=== PATIENT | male | born 1985 ===

== ENCOUNTER 2018-08-11 20:32 | Emergency (ER) | payer OTHER ==
--- NOTE | 2018-08-11 21:07 | ED PDOC ---
HPI: General Adult Time Seen by Provider: 08/11/18 20:44 Chief Complaint (Nursing): Abnormal Skin Integrity History Per: Patient Additional Complaint(s): Pt. states today he developed a progressively worsening painful swelling to the bottom of his chin. He took Tylenol (last dose at 1500) for pain without any relief. States pain is worse when he moves his neck. Denies fever, chills, sore throat, rash, ear pain, cough, congestion, sick contacts, recent travel, abd pa in. Past Medical History Reviewed: Historical Data, Nursing Documentation, Vital Signs Vital Signs: Last Vital Signs Temp 98.6 F 08/11/18 20:36 Pulse 82 08/11/18 20:36 Resp 16 08/11/18 20:36 BP 156/74 H 08/11/18 20:36 Pulse Ox 99 08/11/18 20:36 - Medical History PMH: No Chronic Diseases - Surgical History Surgical History: No Surg Hx - Family History Family History: States: No Known Family Hx - Allergies Allergies/Adverse Reactions: Allergies Allergy/AdvReac Type Severity Reaction Status Date / Time No Known Allergies Allergy Verified 08/11/18 20:36 Review of Systems ROS Statement: Except As Marked, All Systems Reviewed And Found Negative Physical Exam - Physical Exam Appears: Positive for: Well, Non-toxic, No Acute Distress Skin: Positive for: Normal Color, Warm. Negative for: Rash Eye Exam: Positive for: Normal appearance, EOMI, PERRL ENT: Positive for: TM Is/Are (non-erythematous, non-bulging b/l), Other (L sided submandibular swelling and tenderness; no swelling underneath tongue; no dental abscess; no trismus; able to swallow saliva without pain). Negative for: Pharyngeal Erythema, Tonsillar Exudate, Tonsillar Swelling Neck: Positive for: Normal, Painless ROM, Supple. Negative for: Pain On Movement Of Neck Cardiovascular/Chest: Positive for: Regular Rate, Rhythm Respiratory: Positive for: Normal Breath Sounds. Negative for: Stridor Gastrointestinal/Abdominal: Positive for: Soft. Negative for: Tenderness, Organomegaly Neurologic/Psych: Positive for: Alert, Oriented (x3) - Laboratory Results Result Diagrams: 08/11/18 21:21 08/11/18 21:21 - ECG O2 Sat by Pulse Oximetry: 99 - Progress ED Course And Treament: Labs, CT maxillofacial w/ IV contrast ordered. Disposition - Clinical Impression Clinical Impression: Lymphadenopathy - Patient ED Disposition Is Patient to be Admitted: Transfer of Care (Signed out to Reagan MALAVE pending CT results and final disposition) - Disposition Disposition Time: 23:00 Condition: STABLE Forms: [facility] (Salvadorean)
[2018-08-11 21:26] LABS: BASO # 0.1 K/uL (0.0-0.2); BASO % 0.7 % (0.0-2.0); EOS # 0.1 K/uL (0.0-0.7); EOS % 0.4 % (0.0-4.0); HEMOGLOBIN 14.4 g/dL (12.0-18.0); LYMPH # 2.7 K/uL (1.0-4.3); MEAN CORPUSCULAR HEMOGLOBIN 31.8 pg (27.0-31.0); MEAN CORPUSCULAR HGB CONC 34.2 g/dL (33.0-37.0); MEAN PLATELET VOLUME 7.4 fl (7.2-11.7); MONO # 0.9 K/uL (0.0-0.8); MONO % 6.9 % (0.0-10.0); NEUT # 9.7 K/uL (1.8-7.0); RBC 4.52 Mil/uL (4.40-5.90); RED CELL DISTRIBUTION WIDTH 12.9 % (11.5-14.5); WHITE BLOOD COUNT 13.4 K/uL (4.8-10.8)
[2018-08-11 22:00] LABS: ALT/SGPT 53 U/L (21-72); AST/SGOT 37 U/L (17-59); BLOOD UREA NITROGEN 13 mg/dl (9-20); GFR NON-AFRICAN AMERICAN > 60
[2018-08-11 22:09] LABS: ALB/GLOB RATIO 1.3 (1.0-2.1)
[2018-08-11] MEDS ORDERED: Sodium Chloride 0.9% 50 ML IV ONE (23:08)
[2018-08-11] MEDS ORDERED: Iohexol 300 100 ML IJ ONE (23:08)
[2018-08-12] MEDS ORDERED: Dexamethasone 10 MG in Sodium Chloride 0.9% 50 ML IV ONE (01:27)
[2018-08-12] MEDS ORDERED: Sodium Chloride 0.9% 1,000 ML IV STA (01:43)
--- NOTE | 2018-08-12 01:43 | ED PDOC ---
- Laboratory Results Result Diagrams: 08/11/18 21:21 08/11/18 21:21 - ECG O2 Sat by Pulse Oximetry: 99 - Progress ED Course And Treament: SEEN BY DR. RICHEY. D/W DR. ORDOÑEZ. UNASYN 3GM IV X 1 DOSE DECADRON 10 MG IV X 1 DOSE NS 1 LITER 500 ML PER SUZIE PATIENT TO BE SEEN BY DR. ORDOÑEZ IN AM. <Ronny Kirk B - Last Filed: 08/12/18 05:07> - Laboratory Results Result Diagrams: 08/11/18 21:21 08/11/18 21:21 <Raj Dewitt - Last Filed: 08/12/18 06:47> Medical Decision Making Medical Decision Makin:23 CT Soft Tissue Neck FINDINGS: Mild paraseptal emphysema. Enlarged left submandibular gland. Prominent surrounding inflammatory fat stranding and reactive lymphadenopathy, the largest measures 1.3 cm. 4.3x1.3 cm adjacent submandibular fat subcutaneous drainable abscess formation. No obstructing stone is identified. No mass lesion. Overlying subcutaneous inflammatory fat stranding. Normal bilateral parotid glands. Normal bilateral steam locomotive firer/fireman spaces. Normal bilateral parapharyngeal spaces. Normal bilateral carotid spaces. Normal bilateral sublingual and right submandibular gland. Normal visualized nasopharynx. Normal retropharyngeal space. Normal perivertebral space. Normal visualized bilateral faucial tonsils. The visualized tongue, tongue base and oropharynx are normal. Normal epiglottis, bilateral vallecula and hypopharynx. The pre-epiglottic and paraglottic adipose spaces are normal. Normal visualized bilateral piriform sinuses, aryepiglottic folds, vocal cords, and arytenoid-cricoid articulations. Normal subglottic trachea. Normal bilateral lobes of the thyroid gland. Normal visualized pulmonary apices. Normal visualized paranasal sinuses. Normal visualized cervical spine. IMPRESSION: Mild paraseptal emphysema. Enlarged left submandibular gland. Sialadenitis. Prominent surrounding inflammatory fat stranding and reactive lymphadenopathy, the largest measures 1.3 cm. synovitis. 4.3x1.3 cm adjacent submandibular fat subcutaneous drainable abscess formation. No obstructing stone is identified. No mass lesion. Overlying subcutaneous inflammatory fat stranding. <Ronny Kirk B - Last Filed: 12/06/18 05:07> Disposition - POA Present On Arrival: None - Disposition Disposition: Transfer of Care Disposition Time: 05:06 Patient Signed Over To: Raj Dewitt Handoff Comments: PENDING DR. ANTONIO SOLORIO <Ronny Kirk - Last Filed: 08/12/18 05:07> Discussed With : Tod Ordoñez Doctor Will See Patient In The: ED Counseled Patient/Family Regarding: Studies Performed, Diagnosis - Disposition Disposition Time: 07:00 Patient Signed Over To: Omar Cardoso Y <Raj Dewitt - Last Filed: 08/12/18 06:47> - Clinical Impression Clinical Impression: Lymphadenopathy, Submandibular abscess - Disposition Condition: FAIR
[2018-08-12 08:24] VITALS: RESP 16
[2018-08-12] MEDS ORDERED: Lidocaine 1% w Epi 1:100,000 Inj ONE (08:44)
[2018-08-12] MEDS ORDERED: Povidone Iodine Topical 10% Sol ONE (08:44)
--- NOTE | 2018-08-12 09:09 | ED PDOC ---
- Laboratory Results Result Diagrams: 08/11/18 21:21 08/11/18 21:21 - ECG O2 Sat by Pulse Oximetry: 98 (RA) Pulse Ox Interpretation: Normal Medical Decision Making Medical Decision Makin --Care endorsed to this provider by Dr. Dewitt pending ENT evaluation. --Case was discussed with Dr. Ordoñez who requested Unasyn. Will see patient in the ED. 09:20 --Dr. Ordoñez saw patient in the ED. He drained cystic fluid from area. There is no abscess and no indication for an operation. [id number] --Patient will be discharged home with prescription for Augmentin. Follow up with dr ordoñez as instructe to patient. pt agreeable. repeat exam of pt reveals pt in no respiratory distress, airway intact. pt stable . Return precautions provided. Scribe Attestation: Documented by Akanksha Alan acting as a scribe for Omar Cardoso MD Provider Scribe Attestation: All medical record entries made by the Scribe were at my direction and p ersonally dictated by me. I have reviewed the chart and agree that the record accurately reflects my personal performance of the history, physical exam, medical decision making, and the department course for this patient. I have also personally directed, reviewed, and agree with the discharge instructions and disposition. Disposition Counseled Patient/Family Regarding: Studies Performed, Diagnosis, Need For Followup - Clinical Impression Clinical Impression: Lymphadenopathy, Cyst - POA Present On Arrival: None - Disposition Referrals: Tod Ordoñez MD [Staff Provider] - Disposition: Routine/Home Disposition Time: 10:00 Condition: IMPROVED Additional Instructions: follow up with Dr. Ordoñez as instructed return to the ED with any worsening or concerning symptoms Prescriptions: Amoxicillin/Clavulanate [Augmentin 875 MG-125 MG] 1 tab PO BID #20 tab Instructions: Swelling Forms: [facility] (Maldivian), [facility] ED School/Work Excuse
--- NOTE | 2018-08-12 10:13 | CP.PCM.PN ---
Subjective - Date & Time of Evaluation Date of Evaluation: 08/12/18 Time of Evaluation: 10:03 - Subjective Subjective: see below Objective - Vital Signs/Intake and Output Vital Signs (last 24 hours): Temp Pulse Resp BP Pulse Ox 98.3 F 77 16 135/69 98 08/12/18 09:06 08/12/18 09:06 08/12/18 09:06 08/12/18 09:06 08/12/18 09:57 - Labs Labs: 08/11/18 21:21 08/11/18 21:21 Assessment and Plan - Assessment and Plan (Free Text) Assessment: 32 y/o male with 4 months of left neck mass thathas become more noticeable in the past 2 days. It is also tender (5/10) in the past few days. No recent travel. no sick contacts. no voice changes. no throat pain. no problems swallowing. PMH denies NKDA Exam awake, alert, comfortable oc/op clear; tonsils 1+ b/l; floor of mouth soft and normal; normal mucosa throughout oc/op; tonsils and tongue base soft nose clear neck: isolated left submandibular mass that is mildly tender; it is soft and mobile. there is no overlying redness or induration of the skin or sub- cutaneous tissue. fiberoptic laryngoscopy: normal nasopharynx, oropharynx, hypopharynx; no masses or lesions; normal mucosa; airway widely patent CT reviewed: cystic mass in the left submandibular neck with central hypodensity the left neck was prepped with betadine and the skin anesthetized with 1cc lidocaine 1% with epi 1:100k. the neck was then prepped again, and 18g needle passed into the mass. approx 5cc of straw-colored fluid aspirated. no pus. this was sent for cx. repeat aspiration of the tissue was then sent for cytology (FNA), as was some of the fluid. patient tolerated procedure well. no complications. minimal expected bleeding. Impression left submandibular cystic neck mass no abscess s/p aspiration of fluid possible etiologies include: benign cyst that has become secondarily infected (hence the pain and swelling); cystic neck mass from malignancy lymphoepithelial cysts of HIV (although not in parotid gland here) other these were all d/w patient, who acknowledged understanding recommend d/c home on Augmentin check HIV patient was told to see me on Thursday at 1pm in my office; all information was written down by me importance of o/p f/u and further w/u stressed with patient; he understands
[2018-08-12 12:28] VITALS: BP 122/64; PULSE 75; TEMP 98.2
--- NOTE | 2018-08-12 13:23 | CT ---
Date of service: 08/11/2018 PROCEDURE: CT NECK WITH CONTRAST HISTORY: L sided submandibular swelling COMPARISON: None available. TECHNIQUE: CT of the neck with intravenous contrast. Coronal and sagittal reformats generated. Intravenous contrast dose: 85 cc Omnipaque 300 Radiation dose: Total exam DLP = 334.32 mGy-cm. This CT exam was performed using one or more of the following dose reduction techniques: Automated exposure control, adjustment of the mA and/or kV according to patient size, and/or use of iterative reconstruction technique. FINDINGS: NASOPHARYNX: Unremarkable. SUPRAHYOID NECK: Unremarkable oropharynx, oral cavity, parapharyngeal space and retropharyngeal space. INFRAHYOID NECK: Unremarkable larynx, hypopharynx, and supraglottic space. Vocal cords intact. MASS: None. GLANDS: Dilated tubular structure submandibular region without visible calculus therefore likely Fairfax's duct.. The adjacent left submandibular gland is enlarged, edematous. Normal size thyroid gland, without nodule. LYMPH NODES: Necrotic masses left submandibular region. CERVICAL SPINE: No fracture or focal lesion. VASCULAR STRUCTURES: Unremarkable. OTHER FINDINGS: None. 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 No stone or mass identified however. MR sialography may be beneficial for further evaluation. Necrotic lymph nodes are also identified suggestive of an acute inflammatory process. Mildly enlarged edematous left submandibular gland. Concordant findings (preliminary report) provided by [facility].
[2018-08-17 13:04] VITALS: O2SAT 98
== END 2018-08-12 12:16 | disposition home or self-care (01) ==
LOC: H.ER 20:32
DX: K12.2 Cellulitis and abscess of mouth (principal); R59.9 Enlarged lymph nodes, unspecified
CPT/HCPCS: 10021; 70491; 80053; 85025; 86308; 87015; 87040; 87070; 87116; 87206; 87390; 87430; 88104; 88305; 96365; 99285; J0295; J1100; J7030; Q9967